=== PATIENT | female | born 1975 | race Caucasian/White ===

== ENCOUNTER 2019-06-26 07:06 | Day surgery (SDC) | payer BC ==
[~2019-06-26 07:06] MED LIST: Lactated Ringers 1,000 ML IV SCH
[2019-06-26] MEDS ORDERED: Acetaminophen/HYDROcodone 325-5 MG Tab PO PRN (08:00)
[2019-06-26] MEDS ORDERED: Clindamycin Phosphate in D5W 900 MG in Premix Bag 1 BAG IV SCH ×2 (08:00)
--- NOTE | 2019-06-26 08:23 | PCM.PREANE ---
Preanesthetic Assessment - Anesthesia/Transfusion/Family Hx Anesthesia History: Prior Anesthesia Without Reaction Family History of Anesthesia Reaction: No Transfusion History: No Prior Transfusion(s) Intubation History: Unknown - Review of Systems General: No Symptoms Pulmonary: No Symptoms Cardiovascular: No Symptoms Gastrointestinal: No Symptoms Neurological: No Symptoms Other: Reports: None - Physical Assessment O2 Sat by Pulse Oximetry: 100 Respiratory Rate: 16 Vital Signs: Last Vital Signs Temp 36.2 C 06/26/19 07:59 Pulse 88 06/26/19 07:59 Resp 16 06/26/19 07:59 BP 145/85 H 06/26/19 07:59 Pulse Ox 100 06/26/19 07:59 Height: 5 ft 7 in Weight: 95.254 kg ASA Class: 2 Mental Status: Alert & Oriented x3 Airway Class: Mallampati = 2 Dentition: Reports: Normal Dentition Thyro-Mental Finger Breadths: 3 Mouth Opening Finger Breadths: 2 (narrow mouth) ROM/Head Extension: Full Lungs: Clear to Auscultation, Normal Respiratory Effort Cardiovascular: Regular Rate, Regular Rhythm - Lab Values: Laboratory Last Values Urine HCG, Qual NEGATIVE (NEGATIVE) 06/26/19 07:35 - Allergies Allergies/Adverse Reactions: Allergies Allergy/AdvReac Type Severity Reaction Status Date / Time fexofenadine HCl Allergy Rash Verified 06/24/19 11:01 [From Olivia] Penicillins Allergy Rash Verified 06/24/19 11:01 - Anesthesia Plan Pre-Op Medication Ordered: None - Acknowledgements Anesthesia Type Planned: General Anesthesia Pt an Appropriate Candidate for the Planned Anesthesia: Yes Alternatives and Risks of Anesthesia Discussed w Pt/Guardian: Yes Pt/Guardian Understands and Agrees with Anesthesia Plan: Yes PreAnesthesia Questionnaire HEENT History: Reports: Other (See Below) Other HEENT History: wears glasses Cardiovascular History: Reports: High Cholesterol, Hypertension Respiratory History: Reports: None Gastrointestinal History: Reports: None Genitourinary History: Reports: None 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: Musculoskeletal History: Reports: Osteoarthritis Neurological History: Reports: Neuropathy, Peripheral Psychiatric History: Reports: None Endocrine/Metabolic History: Reports: Diabetes, Type II (14 years, last A1c was 6.8), Obesity/BMI 30+ Hematologic History: Reports: None Immunologic History: Reports: None Oncologic (Cancer) History: Reports: None Dermatologic History: Reports: None - Past Surgical History Head Surgeries/Procedures: Reports: None HEENT Surgical History: Reports: Other (See Below) Other HEENT Surgeries/Procedures: Rt, middle ear surgery due to infection Cardiovascular Surgical History: Reports: None Respiratory Surgical History: Reports: None GI Surgical History: Reports: None Female Surgical History: Reports: Section Endocrine Surgical History: Reports: None Neurological Surgical History: Reports: None Musculoskeletal Surgical History: Reports: None Oncologic Surgical History: Reports: None Dermatological Surgical History: Reports: None - SUBSTANCE USE Smoking Status *Q: Never Smoker - HOME MEDS Home Medications: Home Meds Dapagliflozin Propanediol [Farxiga] 10 mg PO DAILY 10/24/15 [History] Enalapril Maleate 10 mg PO BEDTIME 10/24/15 [History] amLODIPine Besylate [Amlodipine Besylate] 10 mg PO BEDTIME 10/24/15 [History] metFORMIN [Glucophage] 1,000 mg PO BID 10/24/15 [History] Gemfibrozil [Lopid] 600 mg PO BID 06/24/19 [History] Insulin Glargine,Hum.Rec.Anlog [Toujeo Solostar] 60 units SUBCUT BEDTIME [History] Liraglutide [Victoza] 1.8 mg SUBCUT DAILY 06/24/19 [History] - CURRENT (IN HOUSE) MEDS Current Meds: Current Medications Hydrocodone Bitart/Acetaminophen ([place] 325-5 Mg) 1 - 2 tab PO Q4H PRN PRN Reason: Pain Clindamycin Phosphate 900 mg/ (Premix) 50 mls @ 89.286 mls/hr IV ONCALL [facility] Lactated Ringer's (Ringers, Lactated) 1,000 mls @ 100 mls/hr IV ASDIRECTED [facility]
[2019-06-26] MEDS ORDERED: Propofol 200 MG/20 ML SDV ONE (08:26)
[2019-06-26] MEDS ORDERED: Midazolam 1 MG/ML 2 ML SDV ONE (08:26)
[2019-06-26] MEDS ORDERED: fentaNYL 250 MCG/5 ML SDV ONE (08:27)
[2019-06-26] MEDS ORDERED: Dexamethasone 4 MG/ML 5 ML MDV ONE (08:29)
[2019-06-26] MEDS ORDERED: Ondansetron 4 MG/2 ML SDV ONE (08:29)
[2019-06-26] MEDS ORDERED: Lidocaine 1% 20 ML MDV ONE (09:14)
[2019-06-26] MEDS ORDERED: fentaNYL 100 MCG/2 ML SDV IVPUSH PRN (09:51)
--- NOTE | 2019-06-26 10:23 | PCM.OPNOTE ---
- General Post-Op/Procedure Note Date of Surgery/Procedure: 06/26/19 Operative Procedure(s): L knee scope with PLM Post-Op Diagnosis: Left knee lat meniscus tear Primary Surgeon: Ruth Ramirez Intrusion Analyst: Lissy Diaz in mLs: 5 Condition: Good Free Text/Narrative:: tt=20 min Brief history Patient is a 44-year-old female who was had continued pain in her left knee. She did have an MRI which did show a tear of the lateral meniscus. Due to her lack of response to conservative treatment, I did recommend surgical intervention. Risks and goals the procedure were discussed with the patient were documented preoperatively. She agreed to proceed. Description of procedure: Patient was properly identified and brought to the operating room. She is transferred from the OR cart and placed on operating table in the supine position. General anesthesia was administered. After adequate anesthesia was obtained, well-padded tourniquet was applied to the left lower extremity. The left lower extremity was then prepped in standard fashion using ChloraPrep solution. It was then sterilely draped. A time out was performed to ensure correct site and procedure. Preoperative antibiotics were given. The surgical site had been marked preoperatively. An Esmarch was used to exsanguinate the left lower extremity and the tourniquet was inflated to 250 mmHg. A lateral portal arthrotomy was established. Blunt trochar and cannula were inserted into the suprapatellar pouch. Camera, inflow, and outflow were assembled. No significant synovitis was noted. The patellofemoral joint was visualized. No significant degenerative changes were noted. The patella appeared to track centrally. I then extended into the lateral and medial gutter. No loose bodies were identified. I then entered the medial compartment. A medial portal arthrotomy was established and a blunt probe was inserted. The meniscus was extensively probed. No instability or tearing was noted. The joint surfaces showed no significant degenerative findings. I then entered the notch. Both the ACL and PCL were probed and found to be intact. As I attempted to enter the lateral compartment, a portion of the lateral meniscus was extruded. This appeared to be a previous tear. The edges were quite blunted and smooth. I then extended into the lateral compartment. Fraying was noted along the posterior horn of the medial meniscus. The portion that was extruded appeared to be a portion of a previous bucket-handle tear. This was resected without difficulty. The remainder of the meniscus was smoothed. The meniscus was then probed. The remainder was found to be stable. 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 No significant degenerative findings were noted along the lateral femoral condyle. Instruments were then removed from the knee. The portal sites were closed with 3 -0 nylon. 1% lidocaine was injected along the portal tracts. Xeroform gauze was placed over the wound and a bulky dressing was applied. Tourniquet was then deflated. She was awakened from her anesthetic and transferred back to the operative cart. She is brought to recovery room in stable condition. All needle and sponge counts were correct.
[2019-06-26] MEDS ORDERED: Ketorolac 30 MG/ML SDV IVPUSH ONE (11:27)
[2019-06-26 12:04] VITALS: BP 138/80; PULSE 76
== END 2019-06-26 12:35 | disposition home or self-care (01) ==
LOC: MW.SDS 07:06
PROVIDERS: ATTEND Orthopaedic Surgery
DX: S83.282A Other tear of lateral meniscus, current injury, left knee, initial encounter (principal); M17.12 Unilateral primary osteoarthritis, left knee; I10 Essential (primary) hypertension; E78.00 Pure hypercholesterolemia, unspecified; E78.2 Mixed hyperlipidemia; E66.3 Overweight; E11.42 Type 2 diabetes mellitus with diabetic polyneuropathy; M65.862 Other synovitis and tenosynovitis, left lower leg; E66.9 Obesity, unspecified; Z68.32 Body mass index [BMI] 32.0-32.9, adult; Z88.8 Allergy status to other drugs, medicaments and biological substances; Z88.0 Allergy status to penicillin; Z79.4 Long term (current) use of insulin; Z79.899 Other long term (current) drug therapy
CPT/HCPCS: 29881; 81025; 82962; A9270; J1100; J1885; J2001; J2250; J2405; J2704; J3010; J3490; J7120; 01400; 88304

== ENCOUNTER 2023-04-06 08:15 | Day surgery (SDC) | payer BC ==
[~2023-04-06 08:15] MED LIST changes: +Sodium Chloride 0.9% 10 ML Syringe FLUSH PRN; +Sodium Chloride 0.9% 2.5 ML Syringe FLUSH PRN; +Sodium Chloride 0.9% 20 ML SDV IV PRN
[2023-04-06] MEDS ORDERED: fentaNYL 100 MCG/2 ML SDV ONE (08:52)
[2023-04-06] MEDS ORDERED: Propofol 200 MG/20 ML SDV ONE (08:52)
[2023-04-06] MEDS ORDERED: Lidocaine 2% 5 ML SDV ONE (08:52)
[2023-04-06 13:09] VITALS: BP 121/72; PULSE 67
== END 2023-04-06 10:13 | disposition home or self-care (01) ==
LOC: MW.SDS 08:15
PROVIDERS: ATTEND Surgery
DX: Z12.11 Encounter for screening for malignant neoplasm of colon (principal); K63.5 Polyp of colon; K62.1 Rectal polyp; K63.89 Other specified diseases of intestine; S46.919A Strain of unspecified muscle, fascia and tendon at shoulder and upper arm level, unspecified arm, initial encounter; I10 Essential (primary) hypertension; E78.00 Pure hypercholesterolemia, unspecified; E66.9 Obesity, unspecified; E11.42 Type 2 diabetes mellitus with diabetic polyneuropathy; E78.1 Pure hyperglyceridemia; E11.9 Type 2 diabetes mellitus without complications; R80.9 Proteinuria, unspecified; M17.12 Unilateral primary osteoarthritis, left knee; Z98.890 Other specified postprocedural states; Z88.0 Allergy status to penicillin; Z88.8 Allergy status to other drugs, medicaments and biological substances; Z79.84 Long term (current) use of oral hypoglycemic drugs; Z79.82 Long term (current) use of aspirin; Z79.899 Other long term (current) drug therapy; Z68.31 Body mass index [BMI] 31.0-31.9, adult; X58.XXXA Exposure to other specified factors, initial encounter
CPT/HCPCS: 45380; 45385; 81025; J2704; J3010; J7120; 00811; J3490